=== PATIENT | male | born 1960 | race Caucasian/White ===

== ENCOUNTER 2017-12-31 02:38 | Emergency (ER) | payer OTHER, BC ==
[~2017-12-31] VITALS: Ht 165.1 cm; Wt 72.5 kg
[2017-12-31] MEDS ORDERED: ULTRAM50 MG PO (04:08)
[2017-12-31 06:26] VITALS: BP 140/83
== END 2017-12-31 06:27 | disposition home or self-care (01) ==
LOC: EME 02:38
DX: S80.02XA Contusion of left knee, initial encounter (principal); S76.102A Unspecified injury of left quadriceps muscle, fascia and tendon, initial encounter; W20.8XXA Other cause of strike by thrown, projected or falling object, initial encounter; Y99.0 Civilian activity done for income or pay
CPT/HCPCS: 73564; 99281; 99284